=== PATIENT | female | born 1990 | race Caucasian/White ===

== ENCOUNTER 2016-06-10 16:04 | Observation (INO) | payer OTHER ==
[2016-06-10 16:57] LABS: URINE BILIRUBIN NEGATIVE (NEG); URINE BLOOD SMALL (NEG); URINE GLUCOSE (UA) NEGATIVE (NEG); URINE KETONE NEGATIVE (NEG); URINE LEUKOCYTE ESTERASE NEGATIVE (NEG); URINE NITRITE NEGATIVE (NEG); URINE PROTEIN NEGATIVE (NEG); URINE SPECIFIC GRAVITY 1.025 (1.003-1.030)
[2016-06-10 17:01] LABS: URINE APPEARANCE HAZY; URINE COLOR YELLOW
[2016-06-10 17:03] LABS: URINE BACTERIA 2+; URINE EPITHELIAL CELLS 15-20 /[HPF] (0-10); URINE RBC 0-3 /[HPF] (0-5); URINE WBC 0-3 /[HPF] (0-5)
[2016-06-10 17:04] LABS: URINE MUCUS 1+
== END 2016-06-10 17:54 ==
LOC: LDR 16:04
PROVIDERS: ADMIT Obstetrics & Gynecology
DX: O99.89 Other specified diseases and conditions complicating pregnancy, childbirth and the puerperium (principal); R10.31 Right lower quadrant pain; Z3A.27 27 weeks gestation of pregnancy